=== PATIENT | male | born 1945 | race Two or more races ===

== ENCOUNTER 2024-11-09 06:10 | Day surgery (SDC) | payer MEDICARE, MEDICAID, SELFPAY ==
--- NOTE | 2024-11-07 06:20 | EKG_ITS ---
[facility] Test Date: 2024-11-07 Pat Name: DMITRIY MORRIS Department: Room: - Gender: Male Expense Clerk: MARIANA : 1945 Requested By: Yosvany Wong Order Number: [id number] Reading MD: Yosvany Wong Measurements Intervals [place] Rate: 58 P: 29 MN: 177 QRS: -66 QRSD: 126 T: 71 QT: 372 QTc: 367 Interpretive Statements SINUS BRADYCARDIA LEFT ANTERIOR FASCICULAR BLOCK [QRS AXIS <= -45, QR IN I, RS IN II] LEFT VENTRICULAR HYPERTROPHY AND ST-T CHANGE [VOLTAGE CRITERIA PLUS ST/T ABNORMALITY] No previous ECG available for comparison /store/S0/[id number].pdf
[2024-11-07 07:57] VITALS: BMI 25.4
[2024-11-07 10:01] LABS: Basophils # (Auto) 0.1 Thou/mm3 (0.0-0.2); Basophils % (Auto) 1 % (0-2.5); Eosinophils # (Auto) 0.1 Thou/mm3 (0.0-0.5); Eosinophils % (Auto) 2 % (0-10); Hematocrit 36.8 % (41.0-53.0); Hemoglobin 12.2 g/dL (13.5-16.0); Immature Granulocytes Auto 0.04 Thou/mm3 (0.00-0.00); Lymphocytes # (Auto) 1.8 Thou/mm3 (1.0-4.8); Lymphocytes % (Auto) 25 % (10-50); Mean Corpuscular HGB Conc 33.2 g/dl (31.0-37.0); Mean Corpuscular Hemoglobin 28.3 pg (25.0-35.0); Mean Corpuscular Volume 85 fL (80-100); Monocytes # (Auto) 0.5 Thou/mm3 (0.0-0.8); Monocytes % (Auto) 6 % (0-12); Neutrophils # (Auto) 4.8 Thou/mm3 (1.8-7.7); Neutrophils % (Auto) 66 % (37-80); Nucleated Red Blood Cell # 0.00 Thou/mm3 (0.00-0.00); Nucleated Red Blood Cell % 0 /100 WBC (0); Platelet Count 260 Thou/mm3 (140-440); RDW Standard Deviation 43.9 fL (35.1-43.9); Red Blood Count 4.31 Miln/mm3 (4.50-5.90); White Blood Count 7.2 Thou/mm3 (3.8-10.6)
[2024-11-07 10:12] LABS: Alanine Aminotransferase 11 U/L (10-49); Albumin, Serum 4.3 gm/dL (3.4-4.8); Albumin/Globulin Ratio 1.8 (1.2-2.2); Alkaline Phosphatase 87 U/L (46-116); Anion Gap 11 (7-16); Aspartate Amino Transferase 16 U/L (0-34); BUN/Creatinine Ratio 14 Ratio (12-20); Bilirubin,Total 0.4 mg/dL (0.3-1.2); Blood Urea Nitrogen 18 mg/dL (9-23); Calcium 9.0 mg/dL (8.3-10.6); Calcium (Corrected) 9.0 mg/dL (8.5-10.1); Carbon Dioxide 25.5 mMol/L (20.0-31.0); Chloride 107 mMol/L (98-107); Creatinine (Component) 1.3 mg/dL (0.6-1.3); Estimated Creatinine Clearance 34.1 mL/min (>60); Globulin 2.4 gm/dL (2.3-3.5); Glucose 128 mg/dL (74-106); Osmolality,Calculated 288 (275-295); Potassium 4.3 mMol/L (3.4-5.1); Sodium 143 mMol/L (136-145); Total Protein 6.7 gm/dL (5.7-8.2); eGFR 56 See Note
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
--- NOTE | 2024-11-08 15:14 | SUR.PREOP ---
Pt notified to come in at 0630 tomorrow.
[2024-11-09 06:44] VITALS: BP 173/56; PULSE 58; RESP 18; TEMP 37.4; O2SAT 97; BMI 24.8
[2024-11-09] MEDS: RINGERS LACTATED 1000 ML 1,000 ML 20 ML IV (07:07)
--- NOTE | 2024-11-09 07:20 | SUR.PREOP ---
Patient expressed gratitude for prayer before their procedure.
--- NOTE | 2024-11-09 08:30 | XR_ITS ---
Examination: Transrectal prostate sonography Date and time: November 09, 2024 0855 hours INDICATIONS: Prostate biopsies by physician in the OR today TECHNIQUE AND FINDINGS: Transrectal prostate sonographic images obtained for prostate biopsies Prostate volume 53.5 cc IMPRESSION: Transrectal prostate sonographic images obtained for prostate biopsies today
[2024-11-09 09:09] VITALS: BP 112/53; PULSE 57; RESP 16; TEMP 36.6; O2SAT 98
--- NOTE | 2024-11-09 09:09 | SUR.PHASEII ---
0909: Pt. AAOx4, vitals stable, breathing unlabored, no complaint of pain or nausea, no dressing in place, no active bleed noted, report recieved from Khadijah RN and Ezio owen GYMNASTIC COACH.
[2024-11-09 09:14] VITALS: BP 106/52; PULSE 56; RESP 16; TEMP 36.6; O2SAT 97
[2024-11-09 09:19] VITALS: BP 136/48; PULSE 52; RESP 20; TEMP 36.5; O2SAT 98
[2024-11-09 09:24] VITALS: BP 134/52; PULSE 55; RESP 15; TEMP 36.6; O2SAT 98
[2024-11-09 09:39] VITALS: BP 154/52; PULSE 56; RESP 17; TEMP 36.6; O2SAT 98
--- NOTE | 2024-11-09 09:50 | SUR.PHASEII ---
0950: Pt. AAOx4, vitals stable, breathing unlabored, no complaint of pain or nausea, no dressing in place, pt. able to urinate hematuria, no visible blood clots in urine, pt. tolerated sips of water well, pt. ambulated to wheelchair with steady gait and no assist, no complications. Gave discharge instructions to the pt. and his ride using a bpm solution architect, both verbalized understanding and had no further questions. Pt. left with all personal belongings.
--- NOTE | 2024-11-09 12:43 | ESOP_ITS ---
RE: DMITRIY MORRIS : 1945 DATE OF OPERATION: 11/09/2024 PREOPERATIVE DIAGNOSES: Prostatism, prostatic obstruction, elevated PSA of 4.8. POSTOPERATIVE DIAGNOSES: Prostatism, prostatic obstruction, elevated PSA of 4.8. PROCEDURES PERFORMED: Cystoscopy, urethral dilatation, transrectal prostatic ultrasound with ultrasound-guided prostatic needle biopsy. ANESTHESIA: Monitored anesthesia. INDICATION: The patient is a 79-year-old gentleman with elevated PSA of 4.8. He has nocturia 4-5 times. Rectally, he has a moderately enlarged prostate with some firmness in the left prostatic lobe. He is now scheduled to have cystoscopy and transrectal prostatic ultrasound with ultrasound-guided prostatic needle biopsy. Planned procedure, risks, and complications have been discussed with the patient. The patient understood them and agreed to proceed. DESCRIPTION OF PROCEDURE: After the patient was brought to the operating table under adequate monitored anesthesia and dorsal lithotomy position, parts were prepped and draped in the usual fashion. Cystoscopy was then carried out, which revealed adequate urethral meatus, normal-appearing urethra, a moderately enlarged prostate, which is bilobed. Scope was introduced into the bladder. Residual urine is yellow and clear and there was about 2-3 ounces. There are no intravesical stones or tumors. The ureteral orifices were found to be normal in position and appearance. Scope was withdrawn. The urethra was dilated. The patient was then turned in the left lateral position. Transrectal prostatic ultrasound was carried out. Biopsies were obtained from both lobes using ultrasound guidance. Prostatic volume was measured at 53.5 cubic cm. The patient tolerated the entire procedure well and left the room in good condition. DT: 09:15:48 TT: 12:43:00 Ref: [id number] - TID: [id number]
== END 2024-11-09 09:50 | disposition home or self-care (01) ==
PROVIDERS: Anesthesiology; PCP Family Medicine; Referring Provider Surgery; Visit Provider Surgery
PROC: 0TJB8ZZ Inspection of Bladder, Via Natural or Artificial Opening Endoscopic (ICD-10-PCS; CPT 52000; principal; 2024-11-09 08:30)
PROC: (CPT 55700; 2024-11-09 08:30)
DX: N40.1 Benign prostatic hyperplasia with lower urinary tract symptoms (principal); R97.20 Elevated prostate specific antigen [PSA]; Z01.810 Encounter for preprocedural cardiovascular examination; E11.9 Type 2 diabetes mellitus without complications; N13.8 Other obstructive and reflux uropathy; I44.4 Left anterior fascicular block; R00.1 Bradycardia, unspecified; I11.9 Hypertensive heart disease without heart failure
CPT/HCPCS: 52281; 55700; 36415; 76942; 80053; 81001; 85025; 87086; 93005; A4217; A4649; J0694; J2704; J3010; J7120